=== PATIENT | male | born 1990 | race Caucasian/White ===

== ENCOUNTER 2020-08-08 16:45 | Emergency (ER) | payer OTHER ==
[2020-08-08] MEDS ORDERED: Zofran 4 MG/2 ML VIAL ONE (17:12)
[2020-08-08] MEDS ORDERED: MORPHINE SULFATE 4 MG INJ ONE ×2 (17:13→18:53)
[2020-08-08] MEDS ORDERED: MORPHINE SULFATE 2 MG INJ IV ONE (17:14)
[2020-08-08] MEDS ORDERED: Zofran 4 MG/2 ML VIAL IV ONE (17:15)
[2020-08-08 18:26] VITALS: O2SAT 100
[2020-08-08] MEDS ORDERED: MORPHINE SULFATE 4 MG INJ IV ONE (18:52)
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
[2020-08-08] MEDS ORDERED: PERCOCET TABLET 5/325MG PO ONE (19:02)
[2020-08-08] MEDS ORDERED: PERCOCET TABLET 5/325MG ONE (19:07)
[2020-08-08 19:16] VITALS: BP 136/84; PULSE 80
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
== END 2020-08-08 19:24 | disposition home or self-care (01) ==
LOC: ED 16:45
DX: S42.022A Displaced fracture of shaft of left clavicle, initial encounter for closed fracture (principal); V86.56XA Driver of dirt bike or motor/cross bike injured in nontraffic accident, initial encounter
CPT/HCPCS: 36000; 71045; 73000; 73030; 96374; 96375; 96376; 99284; J2270; J2405; A9270-GY

== ENCOUNTER 2023-12-03 18:34 | Emergency (ER) | payer OTHER | END 2023-12-03 19:11 | disposition left against medical advice (07) | LOC: ED 18:34 | DX: Z53.21 Procedure and treatment not carried out due to patient leaving prior to being seen by health care provider (principal) | CPT/HCPCS: 99281 ==

== ENCOUNTER 2023-12-06 13:40 | Emergency (ER) | payer OTHER ==
[2023-12-06] MEDS ORDERED: Lactated Ringers 1,000 ML IV ONE ×2 (14:20→16:07)
[2023-12-06] MEDS ORDERED: Adacel Vial IM ONE (14:20)
[2023-12-06] MEDS ORDERED: SUBLIMAZE 100 MCG/2 ML ONE (14:20)
[2023-12-06] MEDS ORDERED: Zofran 4 MG/2 ML VIAL ONE (14:20)
[2023-12-06] MEDS: Adacel Vial IM ONE (14:24)
[2023-12-06] MEDS: Lactated Ringers 1,000 ML IV ONE (14:31)
[2023-12-06] MEDS: SUBLIMAZE 100 MCG/2 ML IV ONE (14:31)
[2023-12-06] MEDS: Zofran 4 MG/2 ML VIAL IV ONE (14:31)
[2023-12-06 14:44] VITALS: RESP 20; TEMP 97.6; O2SAT 98
[2023-12-06] MEDS ORDERED: BACIGUENT PACKET ONE (14:52)
[2023-12-06 15:00] LABS: Absolute Neutrophil Ct (ANC) 9.64 x10^3/uL (1.4-6.9); BASOPHIL % 0.4 % (0.0-0.4); Basophil (Absolute #) 0.05 x10^3/uL (0-0.4); Eosinophil % 0.1 % (0.00-5.0); Eosinophil (Absolute #) 0.01 x10^3/uL (0-0.5); Hematocrit 28.4 % (42-50); Hemoglobin 9.3 g/dL (12.5-18.0); IMMATURE GRAN # 0.14 x10^3u/L (0.00-0.03); IMMATURE GRAN % 1.2 % (0.00-0.4); Lymphocyte (Absolute #) 1.11 x10^3/uL (1.0-4.6); Lymphocytes % 9.4 % (24.0-44.0); Mean Corpuscular Hemoglobin 31.1 pg (26-32); Mean Corpuscular Hgb Concent. 32.7 g/dL (32-36); Mean Platelet Volume 10.3 fL (7.5-11.0); Monocyte (Absolute #) 0.88 x10^3/uL (0.0-1.3); Monocytes % 7.4 % (0.0-12.0); Neutrophil % 81.5 % (36.0-66.0); Platelet Count 178 x10^3/uL (150-450); Red Blood Count 2.99 x10^6/uL (4.1-5.6); Red Cell Distribution Width 12.1 % (11.5-14.0); White Blood Count 11.8 x10^3/uL (4.0-10.5)
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
[2023-12-06] MEDS: BACIGUENT PACKET TP ONE (15:11)
[2023-12-06 15:15] LABS: ALBUMIN 4.1 g/dL (3.5-5.0); ANION GAP 13.3 MEQ/L (5-15); BILIRUBIN,TOTAL 1.4 mg/dL (0.2-1.3); Calcium 9.1 mg/dL (8.4-10.2); Creatinine 1 0.65 mg/dL (0.66-1.25); EST GLOMERULAR FILTRATION RATE 127.6 ML/MIN; Potassium 3.7 mmol/L (3.5-5.1); Total Protein 6.8 g/dL (6.3-8.2)
[2023-12-06] MEDS ORDERED: MORPHINE SULFATE 4 MG INJ ONE (15:28)
[2023-12-06 15:29] LABS: ABO TYPING O; Antibody Screen NEGATIVE (NEGATIVE); RH TYPING POSITIVE
[2023-12-06] MEDS: MORPHINE SULFATE 4 MG INJ IV ONE (15:35)
[2023-12-06] MEDS: Lactated Ringers 1,000 ML IV SCH (16:05)
[2023-12-06 16:14] VITALS: BP 141/95; PULSE 106
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
[2023-12-06 18:07] LABS: Appearance Cloudy (Clear); Bacteria None Seen /HPF (None Seen); Bilirubin Moderate (Negative); Blood Negative (Negative); Epithelial Cells Rare /HPF (None Seen); Glucose, Urine 100 mg/dL (Negative); Ketones Trace (Negative); Leukocyte Esterase Trace (Negative); Nitrite Negative (Negative); Protein,Urine Dip 30 (Negative); RBC 0-2 /HPF (0-5); Specific Gravity >=1.030 (1.005-1.030)
[2023-12-06 18:11] LABS: ADD URINE CULTURE? YES (NO); Hyaline Casts 20-50 /LPF (0-2); Mucus Many /HPF (NEGATIVE)
== END 2023-12-06 17:16 | disposition short-term general hospital (02) ==
LOC: ED 13:40
DX: S36.039A Unspecified laceration of spleen, initial encounter (principal); R10.30 Lower abdominal pain, unspecified; K66.1 Hemoperitoneum; S39.91XA Unspecified injury of abdomen, initial encounter; V89.1XXA Person injured in unspecified nonmotor-vehicle accident, nontraffic, initial encounter; R42 Dizziness and giddiness; S40.212A Abrasion of left shoulder, initial encounter; S40.812A Abrasion of left upper arm, initial encounter; S00.81XA Abrasion of other part of head, initial encounter; F17.200 Nicotine dependence, unspecified, uncomplicated; Z20.828 Contact with and (suspected) exposure to other viral communicable diseases
CPT/HCPCS: 36000; 36415; 70450; 71260; 72125; 74177; 80053; 81001; 83690; 85025; 86850; 86900; 86901; 87086; 90471; 90715; 96360; 96374; 96375; 99285; 99291; J2270; J2405; J3010; A9270-GY

== ENCOUNTER 2024-11-26 18:13 | Observation (INO) | payer MEDICAID, OTHER ==
[2024-11-26 18:51] LABS: BASOPHIL % 0.5 % (0.2-1.2); Basophil (Absolute #) 0.05 x10^3/uL (0.01-0.08); Eosinophil (Absolute #) 0 x10^3/uL (0.04-0.54); Hematocrit 50.2 % (40.1-51.0); Hemoglobin 17.8 g/dL (13.7-17.5); IMMATURE GRAN # 0.06 x10^3u/L (0.001-0.031); IMMATURE GRAN % 0.6 % (0.001-0.429); Lymphocyte (Absolute #) 0.88 x10^3/uL (1.32-3.57); Lymphocytes % 8.5 % (21.8-53.1); Mean Cell Volume 89.8 fL (79.0-92.2); Mean Corpuscular Hemoglobin 31.8 pg (25.7-32.2); Mean Corpuscular Hgb Concent. 35.5 g/dL (32.3-36.5); Monocyte (Absolute #) 0.62 x10^3/uL (0.30-0.82); Neutrophil % 84.4 % (34.0-67.9); Platelet Count 214 x10^3/uL (163-337); Red Blood Count 5.59 x10^6/uL (4.63-6.08); White Blood Count 10.4 x10^3/uL (4.23-9.07)
[2024-11-26] MEDS ORDERED: Zofran 4 MG/2 ML VIAL ONE (18:57)
[2024-11-26] MEDS ORDERED: Sodium Chloride 0.9% 1000 ML 1,000 ML ONE ×2 (18:57→20:15)
[2024-11-26] MEDS: Sodium Chloride 0.9% 1000 ML 1,000 ML IV STA (18:59)
[2024-11-26] MEDS: Zofran 4 MG/2 ML VIAL IV ONE (19:00)
[2024-11-26 19:05] LABS: ANION GAP 24.5 MEQ/L (5-15); BILIRUBIN,TOTAL 0.8 mg/dL (0.2-1.3); Calcium 9.4 mg/dL (8.4-10.2); Creatinine 1 0.49 mg/dL (0.66-1.25); EST GLOMERULAR FILTRATION RATE 138.1 ML/MIN; Potassium 3.3 mmol/L (3.5-5.1); Total Protein 8.1 g/dL (6.3-8.2)
--- NOTE | 2024-11-26 19:43 | ERPHSYRPT ---
- History of Present Illness Time Seen by Provider: 11/26/24 19:10 Source: patient Exam Limitations: no limitations Patient Subjective Stated Complaint: PT states "I have had belly pain since 10 am this morning and I am vomiting." Triage Nursing Assessment: Pt presented alert and oriented X 3, skin pwd. Pt ambulates with an upright steady gait, able to speak in clear full sentences. PT resting comfortably on the bed. Physician History: Patient is a 34-year-old male presents to our ED for evaluation of epigastric pain. Pain started this morning. Patient advised that he was at home drinking alcohol all day yesterday. Patient felt well yesterday. This morning pain started. Pain is got progressively worse. Patient then began to feel nauseous and vomited. Pain described as an ache that is localized to the epigastric region. No trauma no fever although patient states that he injured his spleen about a month ago. Patient was hospitalized for this injury and has since recovered per patient. No interval trauma. No chest pain or shortness of breath. No diaphoresis. Patient denies a history of pancreatitis. Significant other at bedside. They voiced no other complaints or concerns at this time. Portions of this note were created with voice recognition technology. There may be grammatical, spelling, punctuation or sound alike errors Timing/Duration: today Severity: moderate Modifying Factors: Improves With: nothing Associated Symptoms: denies symptoms Allergies/Adverse Reactions: penicillin G Allergy (Intermediate, Verified 12/06/23 14:19) CHILDHOOD Pt states " I guess I was allergic when I was little, but I take amoxicillin and don't have any problems." Home Medications: Dextroamphetamine/Amphetamine [Dextroamp-Amphetamin 30 mg Tab] 30 mg PO DAILY 11/26/24 [History] Hydroxyzine HCl 25 mg [Atarax 25 mg] 25 mg PO DAILY 11/26/24 [History] Sertraline HCl 50 mg [Zoloft 50 mg Tablet] 50 mg PO DAILY 11/26/24 [History] Hx Tetanus, Diphtheria Vaccination/Date Given: Yes Hx Influenza Vaccination/Date Given: No Hx Pneumococcal Vaccination/Date Given: No Immunizations Up to Date: No Travel Risk - International Travel Have you traveled outside of the country in past 3 weeks: No - Emerging Infectious Disease Are you exhibiting symptoms associated with any current EIDs: Yes Symptoms: Abdominal Pain - Review of Systems Constitutional: No Symptoms, No Fever, No Chills Eyes: No Symptoms Ears, Nose, & Throat: No Symptoms Respiratory: No Symptoms, No Cough, No Dyspnea Cardiac: No Symptoms, No Chest Pain, No Edema, No Syncope Abdominal/Gastrointestinal: No Symptoms, No Abdominal Pain, No Nausea, No Vomiting, No Diarrhea Genitourinary Symptoms: No Symptoms, No Dysuria Musculoskeletal: No Symptoms, No Back Pain, No Neck Pain Skin: No Symptoms, No Rash Neurological: No Symptoms, No Dizziness, No Focal Weakness, No Sensory Changes Psychological: No Symptoms Endocrine: No Symptoms Hematologic/Lymphatic: No Symptoms Immunological/Allergic: No Symptoms All Other Systems: Reviewed and Negative - Past Medical History Pertinent Past Medical History: Yes Neurological History: No Pertinent History ENT History: No Pertinent History Cardiac History: No Pertinent History Respiratory History: No Pertinent History Endocrine Medical History: No Pertinent History Musculoskeletal History: No Pertinent History GI Medical History: No Pertinent History History: No Pertinent History Psycho-Social History: No Pertinent History Male Reproductive Disorders: No Pertinent History Other Medical History: Current everyday smoker and tobacco. - Past Surgical History Past Surgical History: Yes Neuro Surgical History: No Pertinent History Cardiac: No Pertinent History Respiratory: No Pertinent History Gastrointestinal: No Pertinent History Genitourinary: No Pertinent History Musculoskeletal: Other Male Surgical History: No Pertinent History Other Surgical History: broken collar bone with 8 screws and plate in left shoulder - Social History Smoking Status: Current every day smoker How long have you smoked: years Exposure to second hand smoke: Yes Drug Use: none - Social Determinants of Health Will the patient participate in the screening: Declined to provide - Nursing Vital Signs Nursing Vital Signs: Initial Vital Signs Temperature 96.6 F 11/26/24 18:20 Pulse Rate 101 H 11/26/24 18:20 Respiratory Rate 24 11/26/24 18:20 Blood Pressure 163/111 11/26/24 18:20 O2 Sat by Pulse Oximetry 100 11/26/24 18:20 Pain Scale Pain Intensity 10 - Physical Exam General Appearance: no apparent distress, alert Eye Exam: PERRL/EOMI, eyes nml inspection Ears, Nose, Throat Exam: normal ENT inspection, pharynx normal, moist mucous membranes Neck Exam: normal inspection, non-tender, supple, full range of motion Respiratory Exam: normal breath sounds, lungs clear, airway intact, No respiratory distress Cardiovascular Exam: regular rate/rhythm, normal heart sounds, normal peripheral pulses Gastrointestinal/Abdomen Exam: soft, tenderness (Epigastric tenderness to palpation. Abdomen slightly distended), distention, other (Hypoactive bowel sounds), No mass Back Exam: normal inspection, normal range of motion, No CVA tenderness, No vertebral tenderness Extremity Exam: normal inspection, normal range of motion, pelvis stable Neurologic Exam: alert, oriented x 3, cooperative, normal mood/affect, sensation nml, No motor deficits Skin Exam: normal color, warm, dry, No rash Lymphatic Exam: No adenopathy SpO2 Interpretation: normal SpO2: 100 O2 Delivery: Room Air - Course Nursing assessment & vital signs reviewed: Yes EKG Interpreted by Me: RATE (96), Sinus Rhythm, NORMAL AXIS, NORMAL INTERVALS, NORMAL QRS - CT Exams Abdomen/Pelvis CT Interpretation: Tele-radiologist Report (Pancreatitis, fatty liver) Ordered Tests: Active Orders 24 hr Category Date Time Status IV Insertion STAT Care 11/26/24 18:38 Active Telemetry q4h Care 11/26/24 19:29 Active ABDOMEN AND PELVIS W/0 CONTRAS [CT] Stat Exams 11/26/24 18:38 Taken AMYLASE Stat Lab 11/26/24 18:45 Completed CBC W DIFF Stat Lab 11/26/24 18:45 Completed CMP Stat Lab 11/26/24 18:45 Completed LIPASE Stat Lab 11/26/24 18:45 Completed MONO SCREEN Stat Lab 11/26/24 18:45 Completed UA W/RFX UR CULTURE Stat Lab 11/26/24 18:39 Ordered Transfer Order Routine Transfer 11/26/24 Ordered Medication Summary Generic Name Dose Route Start Last Admin Trade Name Connorq PRN Reason Stop Dose Admin Magnesium Sulfate/Dextrose 100 mls @ 100 mls/hr 11/26/24 19:30 11/26/24 20:36 Magnesium 1 Gm / 100 Ml D5w IV 11/26/24 21:29 100 mls/hr Q1H VERO Administration Potassium Chloride 20 meq in 100 mls @ 50 mls/hr 11/26/24 19:30 11/26/24 20:01 Potassium Chloride 20 Meq In Water 100ml IV 11/26/24 23:29 50 mls/hr Q2H VERO Administration Sodium Chloride 1,000 mls @ 100 mls/hr 11/26/24 20:30 11/26/24 20:18 Sodium Chloride 0.9% 1000 Ml IV 12/26/24 20:29 100 mls/hr .Q10H VERO Administration Discontinued Medications Generic Name Dose Route Start Last Admin Trade Name Valeri PRN Reason Stop Dose Admin Hydromorphone HCl 0.5 mg 11/26/24 20:27 11/26/24 20:34 Hydromorphone 1 Mg/1ml Inj IV 11/26/24 20:28 0.5 mg STAT ONE Administration Hydromorphone HCl Confirm 11/26/24 20:31 Hydromorphone 1 Mg/1ml Inj Administered 11/26/24 20:32 Dose 1 mg .ROUTE .STK-MED ONE Sodium Chloride 1,000 mls @ 999 mls/hr 11/26/24 18:38 11/26/24 18:59 Sodium Chloride 0.9% 1000 Ml IV 11/26/24 19:38 999 mls/hr .Q1H1M STA Administration Sodium Chloride Confirm 11/26/24 18:57 Sodium Chloride 0.9% 1000 Ml Administered 11/26/24 18:58 Dose 1,000 mls @ ud .ROUTE .STK-MED ONE Morphine Sulfate 4 mg 11/26/24 19:28 11/26/24 19:54 Morphine Sulfate 4 Mg/Ml Injection IV 11/26/24 19:29 4 mg STAT ONE Administration Morphine Sulfate Confirm 11/26/24 19:48 Morphine Sulfate 4 Mg/Ml Injection Administered 11/26/24 19:49 Dose 4 mg .ROUTE .STK-MED ONE Ondansetron HCl 4 mg 11/26/24 18:38 11/26/24 19:00 Ondansetron Hcl 4 Mg/2 Ml Vial IV 11/26/24 18:39 4 mg STAT ONE Administration Ondansetron HCl Confirm 11/26/24 18:57 Ondansetron Hcl 4 Mg/2 Ml Vial Administered 11/26/24 18:58 Dose 4 mg .ROUTE .STK-MED ONE Lab/Rad Data: Laboratory Result Diagrams 11/26/24 18:45 11/26/24 18:45 Laboratory Results 11/26/24 11/26/24 11/26/24 Range/Units 18:47 18:45 18:45 WBC (4.23-9.07) x10^3/uL RBC (4.63-6.08) x10^6/uL Hgb (13.7-17.5) g/dL Hct (40.1-51.0) % MCV (79.0-92.2) fL MCH (25.7-32.2) pg MCHC (32.3-36.5) g/dL RDW (11.6-14.4) % Plt Count (163-337) x10^3/uL MPV (9.4-12.4) fL Gran % (34.0-67.9) % Immature Gran % (Auto) (0.001-0.429) % Nucleat RBC Rel Count (0.00-0.2) % Eos # (Auto) (0.04-0.54) x10^3/uL Immature Gran # (Auto) (0.001-0.031) x10^3u/L Absolute Lymphs (auto) (1.32-3.57) x10^3/uL Absolute Monos (auto) (0.30-0.82) x10^3/uL Absolute Nucleated RBC (0.00-0.012) x10^3u/L Lymphocytes % (21.8-53.1) % Monocytes % (5.3-12.2) % Eosinophils % (0.8-7.0) % Basophils % (0.2-1.2) % Absolute Granulocytes (1.78-5.38) x10^3/uL Basophils # (0.01-0.08) x10^3/uL Sodium 137 (135-145) mmol/L Potassium 3.3 L (3.5-5.1) mmol/L Chloride 97 L (98-107) mmol/L Carbon Dioxide 19 L (22-30) mmol/L Anion Gap 24.5 H (5-15) MEQ/L BUN 9 (9-20) mg/dL Creatinine 0.49 L (0.66-1.25) mg/dL Estimated GFR 138.1 ML/MIN Glucose 153 H (74-106) mg/dL Calcium 9.4 (8.4-10.2) mg/dL Total Bilirubin 0.80 (0.2-1.3) mg/dL AST 191 H (17-59) U/L ALT 115 H (0-50) U/L Alkaline Phosphatase 155 H (38-126) U/L Serum Total Protein 8.1 (6.3-8.2) g/dL Albumin 5.0 (3.5-5.0) g/dL Amylase 347 H (30-110) U/L Lipase 4889 H (23-300) U/L Monoscreen NEGATIVE (NEGATIVE) Influenza Type A Ag NEGATIVE (NEGATIVE) Influenza Type B Ag NEGATIVE (NEGATIVE) RSV (PCR) NEGATIVE (NEGATIVE) SARS-CoV-2 (PCR) NEGATIVE (NEGATIVE) 11/26/24 Range/Units 18:45 WBC 10.4 H (4.23-9.07) x10^3/uL RBC 5.59 (4.63-6.08) x10^6/uL Hgb 17.8 H (13.7-17.5) g/dL Hct 50.2 (40.1-51.0) % MCV 89.8 (79.0-92.2) fL MCH 31.8 (25.7-32.2) pg MCHC 35.5 (32.3-36.5) g/dL RDW 12.0 (11.6-14.4) % Plt Count 214 (163-337) x10^3/uL MPV 9.0 L (9.4-12.4) fL Gran % 84.4 H (34.0-67.9) % Immature Gran % (Auto) 0.6 H (0.001-0.429) % Nucleat RBC Rel Count 0.0 (0.00-0.2) % Eos # (Auto) 0 L (0.04-0.54) x10^3/uL Immature Gran # (Auto) 0.06 H (0.001-0.031) x10^3u/L Absolute Lymphs (auto) 0.88 L (1.32-3.57) x10^3/uL Absolute Monos (auto) 0.62 (0.30-0.82) x10^3/uL Absolute Nucleated RBC 0.00 (0.00-0.012) x10^3u/L Lymphocytes % 8.5 L (21.8-53.1) % Monocytes % 6.0 (5.3-12.2) % Eosinophils % 0.0 L (0.8-7.0) % Basophils % 0.5 (0.2-1.2) % Absolute Granulocytes 8.80 H (1.78-5.38) x10^3/uL Basophils # 0.05 (0.01-0.08) x10^3/uL Sodium (135-145) mmol/L Potassium (3.5-5.1) mmol/L Chloride (98-107) mmol/L Carbon Dioxide (22-30) mmol/L Anion Gap (5-15) MEQ/L BUN (9-20) mg/dL Creatinine (0.66-1.25) mg/dL Estimated GFR ML/MIN Glucose (74-106) mg/dL Calcium (8.4-10.2) mg/dL Total Bilirubin (0.2-1.3) mg/dL AST (17-59) U/L ALT (0-50) U/L Alkaline Phosphatase (38-126) U/L Serum Total Protein (6.3-8.2) g/dL Albumin (3.5-5.0) g/dL Amylase (30-110) U/L Lipase (23-300) U/L Monoscreen (NEGATIVE) Influenza Type A Ag (NEGATIVE) Influenza Type B Ag (NEGATIVE) RSV (PCR) (NEGATIVE) SARS-CoV-2 (PCR) (NEGATIVE) - Progress Progress: improved Progress Note: 34-year-old male presents to our ED for evaluation of epigastric pain. Patient states he went on a drinking binge yesterday. Patient was at home. Patient awoke this morning and developed epigastric pain. Patient states the pain progressively worsened. Physical exam reveals tenderness to palpation of the epigastrium. Lipase is 4800. Potassium slightly low at 3.3 likely secondary to decreased p.o. and vomiting. Case discussed with Dr. Blue or hospitalist who accepts admission to observation at 7:35 PM. Patient will require hospitalization for further evaluation and treatment. Plan of care discussed w ith patient. He agrees to admission at [facility] for further evaluation and treatment. Portions of this note were created with voice recognition technology. There may be grammatical, spelling, punctuation or sound alike errors Complexity of problem addressed is moderate acute complicated. No critical care time. Complexity of data reviewed and analyzed is extensive. Test ordered chest reviewed results analyzed and correlated clinically with history and physical exam. Risk of complication and or risk of morbidity/mortality of patient management is high. Patient requires hospitalization for further evaluation and treatment. Vital stable. Time spent admit patient approximately 15 minutes. Plan of care established for shared decision making. No social d eterminants of health present to impede follow-up. Portions of this note were created with voice recognition technology. There may be grammatical, spelling, punctuation or sound alike errors 11/26/24 19:43 Counseled pt/family regarding: lab results, diagnosis, rad results - Departure Departure Disposition: Observation Clinical Impression: Pancreatitis, Epigastric pain, Hypokalemia, Nausea and vomiting Condition: Stable Critical Care Time: No Referrals: LANA MARI NP [Primary Care Provider] - Follow up/PCP as directed
[2024-11-26 19:46] LABS: INFLUENZA A NEGATIVE (NEGATIVE); INFLUENZA B NEGATIVE (NEGATIVE); RESPIRATORY SYNCTIAL VIRUS NEGATIVE (NEGATIVE); SARS-CoV-2 Xpert Express NEGATIVE (NEGATIVE)
[2024-11-26] MEDS ORDERED: MORPHINE SULFATE 4 MG INJ ONE (19:48)
[2024-11-26] MEDS ORDERED: POTASSIUM CHLORIDE 20 mEq IN WATER 100ML 100 ML IV ONE ×2 (19:50→22:17)
[2024-11-26] MEDS ORDERED: Magnesium 1 Gm / 100 Ml D5W*** 100 ML IV ONE ×2 (19:50→20:35)
[2024-11-26] MEDS: MORPHINE SULFATE 4 MG INJ IV ONE (19:54)
[2024-11-26] MEDS: Magnesium 1 Gm / 100 Ml D5W*** 100 ML IV SCH (19:56)
[2024-11-26] MEDS: POTASSIUM CHLORIDE 20 mEq IN WATER 100ML 20 MEQ/100 ML BAG IV SCH (20:01)
[2024-11-26] MEDS: Sodium Chloride 0.9% 1000 ML 1,000 ML IV SCH ×2 (20:18→21:46)
[2024-11-26] MEDS ORDERED: Hydromorphone 1 mg/ml Injection ONE (20:31)
[2024-11-26] MEDS: Hydromorphone 1 mg/ml Injection IV ONE (20:34)
[2024-11-26] MEDS ORDERED: VENTOLIN COMMON CANISTER IH PRN (21:19)
[2024-11-26] MEDS: NON-FORMULARY ITEM (Dextroamphetamine/Amphetamine [Dextroamp-Amphetamin 30 Mg Tab] 30 MG T PO SCH (21:47)
--- NOTE | 2024-11-26 21:48 | PCM.HP ---
History of Present Illness - Chief Complaint Chief Complaint: Pancreatitis, epigastric pain Date: 11/26/24 History of Present Illness: is a 34 year old male with a history of alcohol abuse (without history of dependence; denies history of withdrawal or seizures or any prior episodes of pancreatitis) who presented to the ED with epigastric pain. The pain started this morning. Patient advised that he was at home drinking alcohol all day yesterday and felt well then This morning pain started and became progressively worse. Patient then began to feel nauseous and vomited. He said he had 2 more alcoholic drinks today. trauma no fever although patient states that he injured his spleen about a month ago. Patient was hospitalized for this injury and has since recovered per patient. He denies chest pain or shortness of breath or diaphoresis. The patient's girlfriend is present at bedside. - Review of Systems Constitutional: No Symptoms Eyes: No Symptoms Ears, Nose, & Throat: No Symptoms Respiratory: No Symptoms Cardiac: No Symptoms Abdominal/Gastrointestinal: Abdominal Pain Genitourinary Symptoms: No Symptoms Musculoskeletal: No Symptoms Skin: No Symptoms Neurological: No Symptoms Psychological: No Symptoms Endocrine: No Symptoms Hematologic/Lymphatic: No Symptoms Immunological/Allergic: No Symptoms All Other Systems: Reviewed and Negative Medications & Allergies Home Medications: Home Medication List Dextroamphetamine/Amphetamine [Dextroamp-Amphetamin 30 mg Tab] 30 mg PO BID 11/26/24 [History Confirmed 11/26/24] Hydroxyzine HCl 25 mg [Atarax 25 mg] 25 mg PO DAILY PRN 11/26/24 [History Confirmed 11/26/24] Sertraline HCl 50 mg [Zoloft 50 mg Tablet] 50 mg PO DAILY 11/26/24 [History Confirmed 11/26/24] Allergies/Adverse Reactions: Allergies Allergy/AdvReac Type Severity Reaction Status Date / Time penicillin G Allergy Intermediate CHILDHOOD Verified 12/06/23 14:19 - Past Medical History Past Medical History: Yes Neurological History: No Pertinent History ENT History: No Pertinent History Cardiac History: No Pertinent History Respiratory History: Asthma Endocrine Medical History: No Pertinent History Musculoskelatal History: Fractures GI Medical History: No Pertinent History History: No Pertinent History Pyscho-Social History: Anxiety, Depression Male Reproductive Disorders: No Pertinent History Comment: Current everyday smoker and tobacco. - Past Surgical History Past Surgical History: Yes Neuro Surgical History: No Pertinent History Cardiac History: No Pertinent History Respiratory Surgery: No Pertinent History GI Surgical History: No Pertinent History Genitourinary Surgical Hx: No Pertinent History Musculskeletal Surgical Hx: Other Male Surgical History: No Pertinent History Other Surgical History: broken collar bone with 8 screws and plate in left shoulder, lacerated spleen Significant Family History: no pertinent family hx - Social History Smoking Status: Current every day smoker How long have you smoked: years Exposure to second hand smoke: Yes Alcohol: Daily Drug Use: none - Social Determinants of Health Will the patient participate in the screening: Declined to provide - Physical Exam Vital Signs: Vital Signs - 24 hr Temp Pulse Resp BP BP Pulse Ox 11/26/24 21:20 90 18 92 L 11/26/24 20:49 100 11/26/24 20:30 102 H 18 128/108 97 11/26/24 20:15 104 H 18 138/100 96 11/26/24 20:00 105 H 38 H 147/112 97 11/26/24 19:45 99 H 32 H 163/115 11/26/24 19:30 96 H 26 H 152/112 11/26/24 19:15 92 H 31 H 135/99 100 11/26/24 19:00 100 H 18 140/95 100 11/26/24 18:59 100 H 30 H 100 11/26/24 18:58 103 H 25 H 100 11/26/24 18:47 109 H 30 H 11/26/24 18:30 110 H 24 151/115 11/26/24 18:20 96.6 F 96 H 22 163/111 163/111 100 General Appearance: alert Neurologic Exam: alert, oriented x 3, cooperative, 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, normal mood/affect, nml cerebellar function Eye Exam: PERRL/EOMI, eyes nml inspection Ears, Nose, Throat Exam: normal ENT inspection Neck Exam: normal inspection, non-tender, supple, full range of motion Respiratory Exam: normal breath sounds, lungs clear, airway intact Cardiovascular Exam: regular rate/rhythm, normal heart sounds Gastrointestinal/Abdomen Exam: soft, normal bowel sounds, tenderness (epigastric pain without peritoneal signs, rebound or rigidity) Back Exam: normal range of motion Extremity Exam: normal inspection, normal range of motion Skin Exam: normal color Results - Labs Lab/Micro Results: Lab Results-Last 24 Hours 11/26/24 11/26/24 11/26/24 Range/Units 18:45 18:45 18:45 WBC 10.4 H (4.23-9.07) x10^3/uL RBC 5.59 (4.63-6.08) x10^6/uL Hgb 17.8 H (13.7-17.5) g/dL Hct 50.2 (40.1-51.0) % MCV 89.8 (79.0-92.2) fL MCH 31.8 (25.7-32.2) pg MCHC 35.5 (32.3-36.5) g/dL RDW 12.0 (11.6-14.4) % Plt Count 214 (163-337) x10^3/uL MPV 9.0 L (9.4-12.4) fL Gran % 84.4 H (34.0-67.9) % Immature Gran % (Auto) 0.6 H (0.001-0.429) % Nucleat RBC Rel Count 0.0 (0.00-0.2) % Eos # (Auto) 0 L (0.04-0.54) x10^3/uL Immature Gran # (Auto) 0.06 H (0.001-0.031) x10^3u/L Absolute Lymphs (auto) 0.88 L (1.32-3.57) x10^3/uL Absolute Monos (auto) 0.62 (0.30-0.82) x10^3/uL Absolute Nucleated RBC 0.00 (0.00-0.012) x10^3u/L Lymphocytes % 8.5 L (21.8-53.1) % Monocytes % 6.0 (5.3-12.2) % Eosinophils % 0.0 L (0.8-7.0) % Basophils % 0.5 (0.2-1.2) % Absolute Granulocytes 8.80 H (1.78-5.38) x10^3/uL Basophils # 0.05 (0.01-0.08) x10^3/uL Sodium 137 (135-145) mmol/L Potassium 3.3 L (3.5-5.1) mmol/L Chloride 97 L (98-107) mmol/L Carbon Dioxide 19 L (22-30) mmol/L Anion Gap 24.5 H (5-15) MEQ/L BUN 9 (9-20) mg/dL Creatinine 0.49 L (0.66-1.25) mg/dL Estimated GFR 138.1 ML/MIN Glucose 153 H (74-106) mg/dL Calcium 9.4 (8.4-10.2) mg/dL Total Bilirubin 0.80 (0.2-1.3) mg/dL AST 191 H (17-59) U/L ALT 115 H (0-50) U/L Alkaline Phosphatase 155 H (38-126) U/L Serum Total Protein 8.1 (6.3-8.2) g/dL Albumin 5.0 (3.5-5.0) g/dL Amylase 347 H (30-110) U/L Lipase 4889 H (23-300) U/L Monoscreen NEGATIVE (NEGATIVE) Influenza Type A Ag (NEGATIVE) Influenza Type B Ag (NEGATIVE) RSV (PCR) (NEGATIVE) SARS-CoV-2 (PCR) (NEGATIVE) 11/26/24 Range/Units 18:47 WBC (4.23-9.07) x10^3/uL RBC (4.63-6.08) x10^6/uL Hgb (13.7-17.5) g/dL Hct (40.1-51.0) % MCV (79.0-92.2) fL MCH (25.7-32.2) pg MCHC (32.3-36.5) g/dL RDW (11.6-14.4) % Plt Count (163-337) x10^3/uL MPV (9.4-12.4) fL Gran % (34.0-67.9) % Immature Gran % (Auto) (0.001-0.429) % Nucleat RBC Rel Count (0.00-0.2) % Eos # (Auto) (0.04-0.54) x10^3/uL Immature Gran # (Auto) (0.001-0.031) x10^3u/L Absolute Lymphs (auto) (1.32-3.57) x10^3/uL Absolute Monos (auto) (0.30-0.82) x10^3/uL Absolute Nucleated RBC (0.00-0.012) x10^3u/L Lymphocytes % (21.8-53.1) % Monocytes % (5.3-12.2) % Eosinophils % (0.8-7.0) % Basophils % (0.2-1.2) % Absolute Granulocytes (1.78-5.38) x10^3/uL Basophils # (0.01-0.08) x10^3/uL Sodium (135-145) mmol/L Potassium (3.5-5.1) mmol/L Chloride (98-107) mmol/L Carbon Dioxide (22-30) mmol/L Anion Gap (5-15) MEQ/L BUN (9-20) mg/dL Creatinine (0.66-1.25) mg/dL Estimated GFR ML/MIN Glucose (74-106) mg/dL Calcium (8.4-10.2) mg/dL Total Bilirubin (0.2-1.3) mg/dL AST (17-59) U/L ALT (0-50) U/L Alkaline Phosphatase (38-126) U/L Serum Total Protein (6.3-8.2) g/dL Albumin (3.5-5.0) g/dL Amylase (30-110) U/L Lipase (23-300) U/L Monoscreen (NEGATIVE) Influenza Type A Ag NEGATIVE (NEGATIVE) Influenza Type B Ag NEGATIVE (NEGATIVE) RSV (PCR) NEGATIVE (NEGATIVE) SARS-CoV-2 (PCR) NEGATIVE (NEGATIVE) - Radiology Impressions Radiology Exams & Impressions: Radiology Procedures Category Date Time Status ABDOMEN AND PELVIS W/0 CONTRAS [CT] Stat Exams 11/26/24 18:38 Taken - Other Procedures and Tests Respiratory Therapy 11/26/24 21:24 Respiratory Therapy Assessment DAILY Assessment/Plan (1) Pancreatitis Current Visit: Yes Status: Acute Assessment & Plan: NPO, IV fluids, analgesia. Zofran prn. Likely due to alcohol. Trend LFTs. Check lipids in AM. Trend lipase and follow clinical course. Code(s): K85.90 - ACUTE PANCREATITIS WITHOUT NECROSIS OR INFECTION, UNSP (2) Alcohol abuse Current Visit: Yes Status: Acute Assessment & Plan: Encourage permanent cessation with new pancreatitis.. Librium and prn Ativan. Monitor for withdrawal. Folate, thiamine, multivitamin supplements. vp client services to provide resources. Code(s): F10.10 - ALCOHOL ABUSE, UNCOMPLICATED (3) Epigastric pain Current Visit: Yes Status: Acute Assessment & Plan: Analgesia prn. IV PPI for now. Code(s): R10.13 - EPIGASTRIC PAIN (4) Hypokalemia Current Visit: Yes Status: Acute Assessment & Plan: Replete K. Check Mag. Code(s): E87.6 - HYPOKALEMIA Telemedicine Encounter - Telemedicine Encounter Telemedicine Encounter: "The entirety of this encounter was performed via Telemedicine" This visit was performed using real-time audio and video connection between my location and thepatients locationwith the assistance of a surrogateat the patients location. Written or verbal consent was obtained from the patient/rock cruzan to perform this visit usingsynchronoustelemedicine technology. Any patient questions regarding the telemedicine interaction were answered.
[2024-11-26] MEDS: LIBRIUM 25 MG PO SCH (22:01)
[2024-11-26] MEDS: PROTONIX 40 MG IV IV SCH (22:10)
[2024-11-26] MEDS: Ativan 2 MG/1 ML VIAL IV PRN (23:21)
[2024-11-27] MEDS: Restoril 15 MG PO PRN (00:40)
[2024-11-27] MEDS: Hydromorphone 1 mg/ml Injection IV PRN (00:40)
[2024-11-27 02:21] LABS: Absolute Neutrophil Ct (ANC) 8.75 x10^3/uL (1.78-5.38); BASOPHIL % 0.3 % (0.2-1.2); Basophil (Absolute #) 0.03 x10^3/uL (0.01-0.08); Eosinophil % 0.1 % (0.8-7.0); Eosinophil (Absolute #) 0.01 x10^3/uL (0.04-0.54); Hematocrit 47.8 % (40.1-51.0); Hemoglobin 16.9 g/dL (13.7-17.5); IMMATURE GRAN # 0.05 x10^3u/L (0.001-0.031); IMMATURE GRAN % 0.5 % (0.001-0.429); Lymphocyte (Absolute #) 0.57 x10^3/uL (1.32-3.57); Lymphocytes % 5.7 % (21.8-53.1); Mean Cell Volume 91.6 fL (79.0-92.2); Mean Corpuscular Hemoglobin 32.4 pg (25.7-32.2); Mean Corpuscular Hgb Concent. 35.4 g/dL (32.3-36.5); Mean Platelet Volume 9.1 fL (9.4-12.4); Monocyte (Absolute #) 0.67 x10^3/uL (0.30-0.82); Monocytes % 6.6 % (5.3-12.2); Neutrophil % 86.8 % (34.0-67.9); Platelet Count 173 x10^3/uL (163-337); Red Blood Count 5.22 x10^6/uL (4.63-6.08); Red Cell Distribution Width 12.2 % (11.6-14.4); White Blood Count 10.1 x10^3/uL (4.23-9.07)
[2024-11-27 02:43] LABS: ALBUMIN 4.4 g/dL (3.5-5.0); ANION GAP 18.8 MEQ/L (5-15); BILIRUBIN,TOTAL 1.3 mg/dL (0.2-1.3); Calcium 8.4 mg/dL (8.4-10.2); Creatinine 1 0.39 mg/dL (0.66-1.25); MAGNESIUM 1.7 mg/dL (1.6-2.3); Potassium 3.8 mmol/L (3.5-5.1); Total Protein 7.2 g/dL (6.3-8.2)
[2024-11-27] MEDS: Zofran 4 MG/2 ML VIAL IV PRN (03:28)
[2024-11-27 04:01] LABS: Appearance Clear (Clear); Bacteria None Seen /HPF (None Seen); Bilirubin Negative (Negative); Blood Negative (Negative); Epithelial Cells Rare /HPF (None Seen); Glucose, Urine Negative (Negative); Ketones Trace (Negative); Leukocyte Esterase Negative (Negative); Nitrite Negative (Negative); Ph 5.5 (4.6-8.0); Protein,Urine Dip 100 (Negative); RBC 0-2 /HPF (0-5); Specific Gravity 1.025 (1.005-1.030); Urobilinogen 0.2 mg/dL (0.2); WBC 0-2 /HPF (0-5)
[2024-11-27 05:02] LABS: Slide Review 1 YES
[2024-11-27] MEDS ORDERED: MEDICATION INTERVENTION MC SCH (07:15)
--- NOTE | 2024-11-27 07:30 | PCM.NOTE ---
Date and Time: 11/27/24727 Subjective Assessment: 11/27/24 is a 34 year old male with a history of alcohol abuse ( 12 beers per day) (without history of dependence; denies history of withdrawal or seizures or any prior episodes of pancreatitis) who presented to the ED with epigastric pain. The pain started 11/26 in the morning. Patient advised that he was at home drinking alcohol all day yesterday and felt well then in the morning pain started and became progressively worse. Patient then began to feel nauseous and vomited. He said he had 2 more alcoholic drinks on 11/26. No trauma no fever although patient states that he injured his spleen about a month ago. Patient was hospitalized for this injury and has since recovered per patient. He denies chest pain or shortness of breath or diaphoresis. Today pt is asking for a nicotine patch and a suppository for constipation. He continues to be NPO as Lipase 4172. He will need a statin when able to have PO meds. Continue IVF and narcotic IV pain meds. Labs overall improving. He continues to have LUQ, RUQ pain. He denies CP, SOB, N/V/D. Continue alcohol withdrawal protocol. - Review of Systems Constitutional: No Fever, No Chills Eyes: No Symptoms Ears, Nose, & Throat: No Symptoms Respiratory: No Cough, No Short Of Breath Cardiac: No Chest Pain, No Edema, No Syncope Abdominal/Gastrointestinal: Abdominal Pain, Constipation, No Nausea, No Vomiting, No Diarrhea Genitourinary Symptoms: No Dysuria Musculoskeletal: No Back Pain, No Neck Pain Skin: No Rash Neurological: No Dizziness, No Focal Weakness, No Sensory Changes Psychological: No Symptoms Endocrine: No Symptoms Hematologic/Lymphatic: No Symptoms Immunological/Allergic: No Symptoms Objective Exam General Appearance: mild distress, alert Neurologic Exam: alert, oriented x 3, cooperative, normal mood/affect, nml cerebellar function, sensation nml, No motor deficits Skin Exam: normal color, warm, dry Eye Exam: PERRL, EOMI, eyes nml inspection Ears, Nose, Throat Exam: normal ENT inspection, pharynx normal, moist mucous membranes Neck Exam: normal inspection, non-tender, supple, full range of motion Respiratory Exam: normal breath sounds, lungs clear, No respiratory distress Cardiovascular Exam: regular rate/rhythm, normal heart sounds Gastrointestinal/Abdomen Exam: soft, tenderness (LUQ, RUQ with palpation), No mass Extremity Exam: normal inspection, normal range of motion Back Exam: normal inspection, normal range of motion, No CVA tenderness, No vertebral tenderness Male Genitalia Exam: deferred Rectal Exam: deferred Objective Data Vital Signs: Vital Signs - 24 hr Temp Pulse Resp BP BP BP Pulse Ox 11/27/24 05:18 110 H 16 94 L 11/27/24 04:00 97.0 F 108 H 17 184/123 96 11/27/24 03:44 108 H 17 184/123 11/27/24 00:00 96.9 F 101 H 18 162/109 97 11/26/24 23:21 93 H 20 157/91 11/26/24 21:20 90 18 92 L 11/26/24 20:54 96.9 F 93 H 20 157/91 96 11/26/24 20:49 100 11/26/24 20:30 102 H 18 128/108 97 11/26/24 20:15 104 H 18 138/100 96 11/26/24 20:00 105 H 38 H 147/112 97 11/26/24 19:45 99 H 32 H 163/115 11/26/24 19:30 96 H 26 H 152/112 11/26/24 19:15 92 H 31 H 135/99 100 11/26/24 19:00 100 H 18 140/95 100 11/26/24 18:59 100 H 30 H 100 11/26/24 18:58 103 H 25 H 100 11/26/24 18:47 109 H 30 H 11/26/24 18:30 110 H 24 151/115 11/26/24 18:20 96.6 F 96 H 22 163/111 163/111 100 Pain Assessment - Last Documented Pain Intensity 8 Pain Scale Used [facility] Intake and Output: Intake & Output 11/24/24 11/25/24 11/26/24 11/27/24 11:59 11:59 11:59 11:59 Intake Total 2483 Output Total 300 Balance 2183 Weight 72.2 kg Lab Results: Lab Results-Last 24 Hours 11/26/24 11/26/24 11/26/24 Range/Units 18:45 18:45 18:45 WBC 10.4 H (4.23-9.07) x10^3/uL RBC 5.59 (4.63-6.08) x10^6/uL Hgb 17.8 H (13.7-17.5) g/dL Hct 50.2 (40.1-51.0) % MCV 89.8 (79.0-92.2) fL MCH 31.8 (25.7-32.2) pg MCHC 35.5 (32.3-36.5) g/dL RDW 12.0 (11.6-14.4) % Plt Count 214 (163-337) x10^3/uL MPV 9.0 L (9.4-12.4) fL Gran % 84.4 H (34.0-67.9) % Immature Gran % (Auto) 0.6 H (0.001-0.429) % Nucleat RBC Rel Count 0.0 (0.00-0.2) % Eos # (Auto) 0 L (0.04-0.54) x10^3/uL Immature Gran # (Auto) 0.06 H (0.001-0.031) x10^3u/L Absolute Lymphs (auto) 0.88 L (1.32-3.57) x10^3/uL Absolute Monos (auto) 0.62 (0.30-0.82) x10^3/uL Absolute Nucleated RBC 0.00 (0.00-0.012) x10^3u/L Lymphocytes % 8.5 L (21.8-53.1) % Monocytes % 6.0 (5.3-12.2) % Eosinophils % 0.0 L (0.8-7.0) % Basophils % 0.5 (0.2-1.2) % Absolute Granulocytes 8.80 H (1.78-5.38) x10^3/uL Basophils # 0.05 (0.01-0.08) x10^3/uL Sodium 137 (135-145) mmol/L Potassium 3.3 L (3.5-5.1) mmol/L Chloride 97 L (98-107) mmol/L Carbon Dioxide 19 L (22-30) mmol/L Anion Gap 24.5 H (5-15) MEQ/L BUN 9 (9-20) mg/dL Creatinine 0.49 L (0.66-1.25) mg/dL Estimated GFR 138.1 ML/MIN Glucose 153 H (74-106) mg/dL Calcium 9.4 (8.4-10.2) mg/dL Magnesium (1.6-2.3) mg/dL Total Bilirubin 0.80 (0.2-1.3) mg/dL AST 191 H (17-59) U/L ALT 115 H (0-50) U/L Alkaline Phosphatase 155 H (38-126) U/L Serum Total Protein 8.1 (6.3-8.2) g/dL Albumin 5.0 (3.5-5.0) g/dL Triglycerides (30-150) mg/dL Cholesterol (50-200) mg/dL LDL Cholesterol (30-100) mg/dL HDL Cholesterol (40-60) mg/dL Heart Disease Risk Ratio Amylase 347 H (30-110) U/L Lipase 4889 H (23-300) U/L Urine Color (Yellow) Urine Appearance (Clear) Urine pH (4.6-8.0) Ur Specific [place] (1.005-1.030) Urine Protein (Negative) Urine Glucose (UA) (Negative) mg/dL Urine Ketones (Negative) Urine Blood (Negative) Urine Nitrite (Negative) Urine Bilirubin (Negative) Urine Urobilinogen (0.2) mg/dL Ur Leukocyte Esterase (Negative) U Hyaline Cast (Auto) (0-2) /LPF Urine Microscopic RBC (0-5) /HPF Urine Microscopic WBC (0-5) /HPF Ur Epithelial Cells (None Seen) /HPF Urine Bacteria (None Seen) /HPF Urine Culture Reflexed (NO) Monoscreen NEGATIVE (NEGATIVE) Influenza Type A Ag (NEGATIVE) Influenza Type B Ag (NEGATIVE) RSV (PCR) (NEGATIVE) SARS-CoV-2 (PCR) (NEGATIVE) Slides for Path Review 11/26/24 11/27/24 11/27/24 Range/Units 18:47 02:30 02:30 WBC 10.1 H (4.23-9.07) x10^3/uL RBC 5.22 (4.63-6.08) x10^6/uL Hgb 16.9 (13.7-17.5) g/dL Hct 47.8 (40.1-51.0) % MCV 91.6 (79.0-92.2) fL MCH 32.4 H (25.7-32.2) pg MCHC 35.4 (32.3-36.5) g/dL RDW 12.2 (11.6-14.4) % Plt Count 173 (163-337) x10^3/uL MPV 9.1 L (9.4-12.4) fL Gran % 86.8 H (34.0-67.9) % Immature Gran % (Auto) 0.5 H (0.001-0.429) % Nucleat RBC Rel Count 0.0 (0.00-0.2) % Eos # (Auto) 0.01 L (0.04-0.54) x10^3/uL Immature Gran # (Auto) 0.05 H (0.001-0.031) x10^3u/L Absolute Lymphs (auto) 0.57 L (1.32-3.57) x10^3/uL Absolute Monos (auto) 0.67 (0.30-0.82) x10^3/uL Absolute Nucleated RBC 0.00 (0.00-0.012) x10^3u/L Lymphocytes % 5.7 L (21.8-53.1) % Monocytes % 6.6 (5.3-12.2) % Eosinophils % 0.1 L (0.8-7.0) % Basophils % 0.3 (0.2-1.2) % Absolute Granulocytes 8.75 H (1.78-5.38) x10^3/uL Basophils # 0.03 (0.01-0.08) x10^3/uL Sodium 134 L (135-145) mmol/L Potassium 3.8 (3.5-5.1) mmol/L Chloride 99 (98-107) mmol/L Carbon Dioxide 20 L (22-30) mmol/L Anion Gap 18.8 H (5-15) MEQ/L BUN 6 L (9-20) mg/dL Creatinine 0.39 L (0.66-1.25) mg/dL Estimated GFR 148.0 ML/MIN Glucose 135 H (74-106) mg/dL Calcium 8.4 (8.4-10.2) mg/dL Magnesium 1.7 (1.6-2.3) mg/dL Total Bilirubin 1.30 (0.2-1.3) mg/dL AST 173 H (17-59) U/L ALT 98 H (0-50) U/L Alkaline Phosphatase 142 H (38-126) U/L Serum Total Protein 7.2 (6.3-8.2) g/dL Albumin 4.4 (3.5-5.0) g/dL Triglycerides 227 H (30-150) mg/dL Cholesterol 170 (50-200) mg/dL LDL Cholesterol 84 (30-100) mg/dL HDL Cholesterol 51 (40-60) mg/dL Heart Disease Risk Ratio 3.0 Amylase (30-110) U/L Lipase 4172 H (23-300) U/L Urine Color (Yellow) Urine Appearance (Clear) Urine pH (4.6-8.0) Ur Specific [place] (1.005-1.030) Urine Protein (Negative) Urine Glucose (UA) (Negative) mg/dL Urine Ketones (Negative) Urine Blood (Negative) Urine Nitrite (Negative) Urine Bilirubin (Negative) Urine Urobilinogen (0.2) mg/dL Ur Leukocyte Esterase (Negative) U Hyaline Cast (Auto) (0-2) /LPF Urine Microscopic RBC (0-5) /HPF Urine Microscopic WBC (0-5) /HPF Ur Epithelial Cells (None Seen) /HPF Urine Bacteria (None Seen) /HPF Urine Culture Reflexed (NO) Monoscreen (NEGATIVE) Influenza Type A Ag NEGATIVE (NEGATIVE) Influenza Type B Ag NEGATIVE (NEGATIVE) RSV (PCR) NEGATIVE (NEGATIVE) SARS-CoV-2 (PCR) NEGATIVE (NEGATIVE) Slides for Path Review YES 11/27/24 Range/Units 03:38 WBC (4.23-9.07) x10^3/uL RBC (4.63-6.08) x10^6/uL Hgb (13.7-17.5) g/dL Hct (40.1-51.0) % MCV (79.0-92.2) fL MCH (25.7-32.2) pg MCHC (32.3-36.5) g/dL RDW (11.6-14.4) % Plt Count (163-337) x10^3/uL MPV (9.4-12.4) fL Gran % (34.0-67.9) % Immature Gran % (Auto) (0.001-0.429) % Nucleat RBC Rel Count (0.00-0.2) % Eos # (Auto) (0.04-0.54) x10^3/uL Immature Gran # (Auto) (0.001-0.031) x10^3u/L Absolute Lymphs (auto) (1.32-3.57) x10^3/uL Absolute Monos (auto) (0.30-0.82) x10^3/uL Absolute Nucleated RBC (0.00-0.012) x10^3u/L Lymphocytes % (21.8-53.1) % Monocytes % (5.3-12.2) % Eosinophils % (0.8-7.0) % Basophils % (0.2-1.2) % Absolute Granulocytes (1.78-5.38) x10^3/uL Basophils # (0.01-0.08) x10^3/uL Sodium (135-145) mmol/L Potassium (3.5-5.1) mmol/L Chloride (98-107) mmol/L Carbon Dioxide (22-30) mmol/L Anion Gap (5-15) MEQ/L BUN (9-20) mg/dL Creatinine (0.66-1.25) mg/dL Estimated GFR ML/MIN Glucose (74-106) mg/dL Calcium (8.4-10.2) mg/dL Magnesium (1.6-2.3) mg/dL Total Bilirubin (0.2-1.3) mg/dL AST (17-59) U/L ALT (0-50) U/L Alkaline Phosphatase (38-126) U/L Serum Total Protein (6.3-8.2) g/dL Albumin (3.5-5.0) g/dL Triglycerides (30-150) mg/dL Cholesterol (50-200) mg/dL LDL Cholesterol (30-100) mg/dL HDL Cholesterol (40-60) mg/dL Heart Disease Risk Ratio Amylase (30-110) U/L Lipase (23-300) U/L Urine Color Dark Yellow (Yellow) Urine Appearance Clear (Clear) Urine pH 5.5 (4.6-8.0) Ur Specific [place] 1.025 (1.005-1.030) Urine Protein 100 A (Negative) Urine Glucose (UA) Negative (Negative) mg/dL Urine Ketones Trace A (Negative) Urine Blood Negative (Negative) Urine Nitrite Negative (Negative) Urine Bilirubin Negative (Negative) Urine Urobilinogen 0.2 (0.2) mg/dL Ur Leukocyte Esterase Negative (Negative) U Hyaline Cast (Auto) 11-20 (0-2) /LPF Urine Microscopic RBC 0-2 (0-5) /HPF Urine Microscopic WBC 0-2 (0-5) /HPF Ur Epithelial Cells Rare (None Seen) /HPF Urine Bacteria None Seen (None Seen) /HPF Urine Culture Reflexed NO (NO) Monoscreen (NEGATIVE) Influenza Type A Ag (NEGATIVE) Influenza Type B Ag (NEGATIVE) RSV (PCR) (NEGATIVE) SARS-CoV-2 (PCR) (NEGATIVE) Slides for Path Review Radiology Exams: Radiology Procedures Category Date Time Status ABDOMEN AND PELVIS W/0 CONTRAS [CT] Stat Exams 11/26/24 18:38 Taken Assessment/Plan (1) Pancreatitis Current Visit: Yes Status: Acute Assessment & Plan: -NPO, IV fluids, analgesia. Zofran prn. - Likely due to alcohol. - AST 173, ALT 98- improved - lipids reviewed- will need medication when able to tolerate PO - lipase 4172- improving Code(s): K85.90 - ACUTE PANCREATITIS WITHOUT NECROSIS OR INFECTION, UNSP Code(s): K85.90 - ACUTE PANCREATITIS WITHOUT NECROSIS OR INFECTION, UNSP (2) Alcohol abuse Current Visit: Yes Status: Acute Assessment & Plan: -Encouraged permanent cessation with new pancreatitis.. - Librium and prn Ativan. - Monitor for withdrawal. - Folate, thiamine, multivitamin supplements. - business services sales representative to provide resources. Code(s): F10.10 - ALCOHOL ABUSE, UNCOMPLICATED (3) Hyperlipidemia Current Visit: Yes Status: Acute Assessment & Plan: - Triglycerides 227 - Start statin when tolerating PO Code(s): E78.5 - HYPERLIPIDEMIA, UNSPECIFIED (4) Transaminitis Current Visit: Yes Status: Acute Assessment & Plan: - AST 173, ALT 98-improving- trend Code(s): R74.01 - ELEVATION OF LEVELS OF LIVER TRANSAMINASE LEVELS (5) Epigastric pain Current Visit: Yes Status: Acute Assessment & Plan: - Analgesia prn. IV PPI for now. Code(s): R10.13 - EPIGASTRIC PAIN (6) Hypokalemia Current Visit: Yes Status: Resolved Assessment & Plan: -resolved Code(s): E87.6 - HYPOKALEMIA (7) ADHD Current Visit: Yes Status: Chronic Assessment & Plan: - hold med VTE: Lovenox PPI: Protonix Next of KIN: Mother- Cecilia Hwang [phone] D/C plan: 2-3 days Code status: Full
--- NOTE | 2024-11-27 08:01 | XRAY ---
Indication: Abdomen pain. Vomiting. Multiple contiguous axial images obtained through the abdomen and pelvis without contrast. Comparison: December 06, 2023 Lung bases clear. Heart not enlarged. Stomach is mildly fluid distended. Noncontrasted stomach and bowel loops appear nonobstructed with normal appendix. Diffuse fatty liver. Pancreas now appears prominent with peripancreatic stranding favoring acute pancreatitis. Adjacent descending duodenum demonstrates circumferential wall thickening, probable reactive duodenitis. Small. Pancreatic free fluid and along right colic gutter. No walled off fluid collection or free air. Remaining liver, gallbladder, spleen, adrenal glands, kidneys, ureters, and bladder are unremarkable for noncontrast exam. Very minimal aortoiliac calcifications without AAA. Osseous structures intact again with bilateral L5 spondylolysis without listhesis. Impression: 1. New CT features favoring acute pancreatitis with free fluid and probable reactive duodenitis. 2. Chronic findings including fatty liver, arteriosclerotic disease, and L5 spondylolysis without listhesis.
[2024-11-27 09:24] LABS: Amphetamine,Urine POSITIVE (NEGATIVE); Barbiturate,Urine NEGATIVE (NEGATIVE); Benzodiazepine,Urine NEGATIVE (NEGATIVE); Cocaine,Urine NEGATIVE (NEGATIVE); Methadone,Urine NEGATIVE (NEGATIVE); Opiate,Urine POSITIVE (NEGATIVE); PCP,Urine NEGATIVE (NEGATIVE); THC,Urine NEGATIVE (NEGATIVE)
[2024-11-27] MEDS: ENOXAPARIN SODIUM SQ SCH (09:32)
[2024-11-27] MEDS: VITAMIN B-1 100 MG PO SCH (09:33)
[2024-11-27] MEDS: ZOLOFT 50 MG TABLET PO SCH (09:33)
[2024-11-27] MEDS: THERAGRAN MULTIVITAMIN PO SCH (09:33)
[2024-11-27] MEDS: FOLATE 1 MG PO SCH (09:33)
[2024-11-27] MEDS: APRESOLINE 20 MG/ML INJ IV PRN (09:49)
[2024-11-27] MEDS ORDERED: Nicoderm CQ 21 MG ONE (14:21)
[2024-11-27] MEDS: Nicoderm CQ 21 MG TOP SCH (14:22)
[2024-11-27] MEDS: Dulcolax 10 MG SUPP PR ONE (17:08)
[2024-11-27] MEDS: TYLENOL 325 MG PO PRN (17:13)
[2024-11-27] MEDS ORDERED: Sterile H2O 10 ml IJ ONE (22:16)
[2024-11-27] MEDS: Mucinex 600MG ER Tabs PO SCH (22:23)
[2024-11-28 05:44] LABS: Hematocrit 43.9 % (40.1-51.0); Hemoglobin 14.8 g/dL (13.7-17.5); Mean Corpuscular Hemoglobin 31.7 pg (25.7-32.2); Mean Corpuscular Hgb Concent. 33.7 g/dL (32.3-36.5); Mean Platelet Volume 10.2 fL (9.4-12.4); Platelet Count 122 x10^3/uL (163-337); Red Blood Count 4.67 x10^6/uL (4.63-6.08); Red Cell Distribution Width 12.7 % (11.6-14.4)
[2024-11-28 07:39] LABS: ALBUMIN 3.7 g/dL (3.5-5.0); ANION GAP 12.7 MEQ/L (5-15); BILIRUBIN,TOTAL 2.2 mg/dL (0.2-1.3); Calcium 8.5 mg/dL (8.4-10.2); Creatinine 1 0.52 mg/dL (0.66-1.25); EST GLOMERULAR FILTRATION RATE 135.6 ML/MIN; Potassium 3.6 mmol/L (3.5-5.1); Total Protein 6.5 g/dL (6.3-8.2)
[2024-11-28 07:59] VITALS: PULSE 125; RESP 17; TEMP 97.5; O2SAT 95
[2024-11-28] MEDS: ATARAX 25 MG PO PRN (10:11)
[2024-11-28 10:15] VITALS: BP 137/98
[2024-11-28] MEDS: NORCO 5/325 MG PO PRN (10:50)
--- NOTE | 2024-11-28 11:14 | PCM.DS ---
Discharge Summary Date of Admission: 11/26/24 20:51 Date of Discharge: 11/28/24 Admitting Physician: KAITLYNN SALINSA MD Primary Care Provider: LANA MARI Allergies Allergies penicillin G Allergy (Intermediate, Verified 12/06/23 14:19) CHILDHOOD Pt states " I guess I was allergic when I was little, but I take amoxicillin and don't have any problems." Hospital Summary - Hospital Course Hospital Course: 11/27/24 is a 34 year old male with a history of alcohol abuse ( 12 beers per day) (without history of dependence; denies history of withdrawal or seizures or any prior episodes of pancreatitis) who presented to the ED with epigastric pa in. The pain started 11/26 in the morning. Patient advised that he was at home drinking alcohol all day yesterday and felt well then in the morning pain started and became progressively worse. Patient then began to feel nauseous and vomited. He said he had 2 more alcoholic drinks on 11/26. No trauma no fever although patient states that he injured his spleen about a month ago. Patient was hospitalized for this injury and has since recovered per patient. He denies chest pain or shortness of breath or diaphoresis. Today pt is asking for a nicotine patch and a suppository for constipation. He continues to be NPO as Lipase 4172. He will need a statin when able to have PO meds. Continue IVF and narcotic IV pain meds. Labs overall improving. He continues to have LUQ, RUQ pain. He denies CP, SOB, N/V/D. Continue alcohol withdrawal protocol. 11/28/24 Pt is sitting up in the bed. He is feeling much better today. Stop IV pain meds and IVF. Changed pain meds to PO. Pt was able to eat a regular breakfast w/o pain. He is wanting to d/c today. Labs overall improved. Encouraged pt to f/u with PCP as scheduled. advised ETOH cessation. He denies CP, SOB, abd. p ain, N/V/D. - Vitals & Intake/Output Vital Signs: Vital Signs Temperature 97.5 F 11/28/24 07:58 Pulse Rate 125 H 11/28/24 07:58 Respiratory Rate 17 11/28/24 07:58 Blood Pressure 137/98 11/28/24 10:14 O2 Sat by Pulse Oximetry 95 11/28/24 07:58 Intake & Output: Intake & Output 11/25/24 11/26/24 11/27/24 11/28/24 11:59 11:59 11:59 11:59 Intake Total 2483 3039 Output Total 300 200 Balance 2183 2839 Weight 72.2 kg - Lab Result Diagrams: 11/28/24 05:19 11/28/24 05:19 Lab Results-Last 24 Hrs: Lab Results-Last 24 Hours 11/28/24 11/28/24 Range/Units 05:19 05:19 WBC 6.0 (4.23-9.07) x10^3/uL RBC 4.67 (4.63-6.08) x10^6/uL Hgb 14.8 (13.7-17.5) g/dL Hct 43.9 (40.1-51.0) % MCV 94.0 H (79.0-92.2) fL MCH 31.7 (25.7-32.2) pg MCHC 33.7 (32.3-36.5) g/dL RDW 12.7 (11.6-14.4) % Plt Count 122 L (163-337) x10^3/uL MPV 10.2 (9.4-12.4) fL Sodium 134 L (135-145) mmol/L Potassium 3.6 (3.5-5.1) mmol/L Chloride 97 L (98-107) mmol/L Carbon Dioxide 28 (22-30) mmol/L Anion Gap 12.7 (5-15) MEQ/L BUN 6 L (9-20) mg/dL Creatinine 0.52 L (0.66-1.25) mg/dL Estimated GFR 135.6 ML/MIN Glucose 106 (74-106) mg/dL Calcium 8.5 (8.4-10.2) mg/dL Total Bilirubin 2.20 H (0.2-1.3) mg/dL AST 116 H (17-59) U/L ALT 65 H (0-50) U/L Alkaline Phosphatase 112 (38-126) U/L Serum Total Protein 6.5 (6.3-8.2) g/dL Albumin 3.7 (3.5-5.0) g/dL - Radiology Exams Ordered Rad Exams-Entire Visit: Radiology Procedures Category Date Time Status ABDOMEN AND PELVIS W/0 CONTRAS [CT] Stat Exams 11/26/24 18:38 Completed - Procedures and Test Procedures and Tests throughout Hospitalization: Therapy Orders & Screens 11/26/24 21:19 Respiratory Therapy Consult ONCE Comment: Reason For Exam: Diagnosis: Pancreatitis, epigastric pain 11/26/24 21:24 Respiratory Therapy Assessment DAILY Comment: Diagnosis: Pancreatitis, epigastric pain 11/26/24 21:45 Smoking Cessation Education ONCE Comment: Diagnosis: Pancreatitis, epigastric pain Smoking Status: Current every day smoker How long have you smoked: 18 yrs Have you smoked in the past 12 months: Yes Approximately how many cigarettes per day: 1 pack/day Do you dip or chew tobacco: Yes Discharge Exam General Appearance: no apparent distress, alert Neurologic Exam: alert, oriented x 3, cooperative, normal mood/affect, nml cerebellar function, sensation nml, No motor deficits Eye Exam: PERRL, EOMI, eyes nml inspection Ears, Nose, Throat Exam: normal ENT inspection, pharynx normal, moist mucous membranes Neck Exam: normal inspection, non-tender, supple, full range of motion Respiratory Exam: normal breath sounds, lungs clear, No respiratory distress Cardiovascular Exam: regular rate/rhythm, normal heart sounds Gastrointestinal/Abdomen Exam: soft, No tenderness, No mass Male Genitalia Exam: deferred Rectal Exam: deferred Back Exam: normal inspection, normal range of motion, No CVA tenderness, No vertebral tenderness Extremity Exam: normal inspection, normal range of motion Skin Exam: normal color, warm, dry Final Diagnosis/Problem List - Final Discharge Diagnosis/Problem (1) Pancreatitis Current Visit: Yes Status: Acute Code(s): K85.90 - ACUTE PANCREATITIS WITHOUT NECROSIS OR INFECTION, UNSP (2) Alcohol abuse Current Visit: Yes Status: Acute Code(s): F10.10 - ALCOHOL ABUSE, UNCOMPLICATED (3) Hyperlipidemia Current Visit: Yes Status: Acute Code(s): E78.5 - HYPERLIPIDEMIA, UNSPECIFIED (4) Transaminitis Current Visit: Yes Status: Acute Code(s): R74.01 - ELEVATION OF LEVELS OF LIVER TRANSAMINASE LEVELS (5) Epigastric pain Current Visit: Yes Status: Acute Code(s): R10.13 - EPIGASTRIC PAIN (6) Hypokalemia Current Visit: Yes Status: Resolved Code(s): E87.6 - HYPOKALEMIA (7) ADHD Current Visit: Yes Status: Chronic Assessment & Plan: (1) Pancreatitis Current Visit: Yes Status: Acute Assessment & Plan: -NPO, IV fluids, analgesia. Zofran prn. - Likely due to alcohol. - AST 173, ALT 98- improved - lipids reviewed- will need medication when able to tolerate PO - lipase 4172- improving 11/28 - Pain improved - IV med changed to PO - started regular diet- tolerated well - Stop IVF Code(s): K85.90 - ACUTE PANCREATITIS WITHOUT NECROSIS OR INFECTION, UNSP Code(s): K85.90 - ACUTE PANCREATITIS WITHOUT NECROSIS OR INFECTION, UNSP (2) Alcohol abuse Current Visit: Yes Status: Acute Assessment & Plan: -Encouraged permanent cessation with new pancreatitis.. - Librium and prn Ativan. - Monitor for withdrawal. - Folate, thiamine, multivitamin supplements. - technical services assistant to provide resources. Code(s): F10.10 - ALCOHOL ABUSE, UNCOMPLICATED (3) Hyperlipidemia Current Visit: Yes Status: Acute Assessment & Plan: - Triglycerides 227 - Start statin when tolerating PO Code(s): E78.5 - HYPERLIPIDEMIA, UNSPECIFIED (4) Transaminitis Current Visit: Yes Status: Acute Assessment & Plan: - AST 173, ALT 98-improving- trend 11/28 - AST 116, ALT 65- improved- will need to f/u OP with pcp FOR REPEAT LABS Code(s): R74.01 - ELEVATION OF LEVELS OF LIVER TRANSAMINASE LEVELS (5) Epigastric pain Current Visit: Yes Status: Acute Assessment & Plan: - Analgesia prn. IV PPI for now. Code(s): R10.13 - EPIGASTRIC PAIN (6) Hypokalemia Current Visit: Yes Status: Resolved Assessment & Plan: -resolved Code(s): E87.6 - HYPOKALEMIA (7) ADHD Current Visit: Yes Status: Chronic Assessment & Plan: - hold med - Discharge Discharge Date: 11/28/24 Disposition: Home, Self-Care Condition: Stable Prescriptions: Continue Sertraline HCl 50 mg [Zoloft 50 mg Tablet] 50 mg PO DAILY Hydroxyzine HCl 25 mg [Atarax 25 mg] 25 mg PO DAILY PRN PRN Reason: Anxiety Dextroamphetamine/Amphetamine [Dextroamp-Amphetamin 30 mg Tab] 30 mg PO BID Instructions: High cholesterol, Alcohol withdrawal, Alcohol use disorder - Discharge instructions, Acute pancreatitis Follow up with: LANA MARI NP [Primary Care Provider] - 12/03/24 10:00 am
== END 2024-11-28 11:53 | disposition home or self-care (01) ==
LOC: ED 18:13 → MED SURG 20:51
PROVIDERS: ADMIT Internal Medicine; ATTEND Internal Medicine
DX: K85.90 Acute pancreatitis without necrosis or infection, unspecified (principal); F10.10 Alcohol abuse, uncomplicated; E78.5 Hyperlipidemia, unspecified; R74.01 Elevation of levels of liver transaminase levels; R10.13 Epigastric pain; E87.6 Hypokalemia; F90.9 Attention-deficit hyperactivity disorder, unspecified type; F17.200 Nicotine dependence, unspecified, uncomplicated; Z79.899 Other long term (current) drug therapy
CPT/HCPCS: 0241U; 36415; 74176; 80053; 80061; 80307; 81001; 82150; 83690; 83721; 83735; 85025; 85027; 86308; 93268; 94760; 96374; 99285; G0378; Q3014; J0360; J1171; J1650; J2060; J2270; J2405; J3475; J3480; A9270-GY